=== PATIENT | female | born 1995 | race Caucasian/White ===

== ENCOUNTER 2022-06-28 04:01 | Emergency (ER) | payer MEDICAID ==
[~2022-06-28] VITALS: Ht 170.2 cm; Wt 95.3 kg
[2022-06-28 04:10] VITALS: BP 119/68
--- NOTE | 2022-06-28 04:10 | NUR ---
BIBS FROM HOME C/O BUG STUCK IN HER RIGHT EAR. PT A/OX4. TOLERATING R/A AT 100%. PT IN NO DISTRESS AT THIS TIME. AMB WITH STEADY GAIT. SAFETY MEASURES IN PLACE.
[2022-06-28] MEDS ORDERED: LIDOCAINE VISCOUS 2% UD 15 ML UDC ONE (04:18)
[2022-06-28] MEDS ORDERED: LIDOCAINE VISCOUS 2% UD 15 ML UDC MM ONE (04:30)
--- NOTE | 2022-06-28 04:44 | NUR ---
DR. MOSS, EMT AND RT AT PT'S BEDSIDE FOR R EAR ASSESSMENT
[2022-06-28] MEDS ORDERED: AMOX-430 PO (04:57)
[2022-06-28] MEDS ORDERED: AMOX/CLAVULANATE 875 MG TABLET ONE (04:59)
[2022-06-28] MEDS ORDERED: AMOX/CLAVULANATE 875 MG TABLET PO ONE (05:00)
== END 2022-06-28 05:26 | disposition home or self-care (01) ==
LOC: ER 04:05
DX: T16.1XXA Foreign body in right ear, initial encounter (principal); W45.8XXA Other foreign body or object entering through skin, initial encounter; Y93.89 Activity, other specified; Y92.89 Other specified places as the place of occurrence of the external cause; Y99.8 Other external cause status

== ENCOUNTER 2024-06-07 16:38 | Emergency (ER) | payer BC, MEDICAID ==
[~2024-06-07] VITALS: Ht 167.6 cm; Wt 88.5 kg
[~2024-06-07 16:38] MED LIST: AMOX-430 PO
[2024-06-07 17:33] VITALS: TEMP 97.9
[2024-06-07 18:12] LABS: BASOPHILS # (AUTO) 0.1 K/uL (0.0-0.2); BASOPHILS % (AUTO) 0.7 % (0.0-2.0); EOSINOPHILS # (AUTO) 0.2 K/uL (0.0-0.7); EOSINOPHILS % (AUTO) 1.4 % (0.0-6.0); HEMATOCRIT 36 % (33-45); HEMOGLOBIN 11.4 g/dL (11.5-14.8); LYMPHOCYTES # (AUTO) 3.1 K/uL (0.8-4.8); LYMPHOCYTES % (AUTO) 27.9 % (20.0-44.0); MEAN CORPUSCULAR HEMOGLOBIN 26 PG (26.0-33.0); MEAN CORPUSCULAR HGB CONC 32 g/dl (31.0-36.0); MEAN CORPUSCULAR VOLUME 80 fL (82-100); MONOCYTES # (AUTO) 0.9 K/uL (0.1-1.30); MONOCYTES % (AUTO) 8.4 % (2.0-12.0); NEUTROPHILS # (AUTO) 6.9 K/uL (1.8-8.9); NEUTROPHILS % (AUTO) 61.6 % (43.0-81.0); PLATELET COUNT (AUTO) 360 K/uL (150-450); RED BLOOD CELL COUNT(AUTO) 4.45 MIL/uL (4.0-5.2); RED CELL DISTRIBUTION WIDTH 16.5 % (11.5-15.0); WHITE BLOOD COUNT (AUTO) 11.2 K/uL (4.3-11.0)
[2024-06-07 18:24] LABS: CALCIUM, SERUM 8.8 mg/dL (8.5-10.1); CREATININE 0.6 mg/dL (0.6-1.3)
[2024-06-07 18:36] LABS: APPEARANCE,URINE Clear (CLEAR); BILIRUBIN,URINE Negative (NEGATIVE); BLOOD, URINE Large Ery/uL (NEGATIVE); COLOR,URINE YELLOW (YELLOW); KETONES,URINE 15 mg/dL (NEGATIVE); LEUKOCYTE ESTERASE ,URINE Negative (NEGATIVE); NITRITE, URINE Negative (NEGATIVE); PH,URINE 5.5 (5.0-8.0); PROTEIN,URINE Negative (NEGATIVE); UGLUCOSE Negative (NEGATIVE); UROBILINOGEN,URINE 0.2 EU/dL (0.2)
[2024-06-07 19:03] LABS: WBC,URINE 0-2 /HPF (0-3)
[2024-06-07 19:04] LABS: ADD URINE CULTURE NO; BACTERIA,URINE Few /HPF (None Seen); SQUAMOUS EPITHELIAL CELL,UR Few /HPF (None Seen)
[2024-06-07 21:43] VITALS: BP 128/78; O2SAT 100
== END 2024-06-07 21:44 | disposition home or self-care (01) ==
LOC: ER 16:49
DX: O46.91 Antepartum hemorrhage, unspecified, first trimester (principal); R10.2 Pelvic and perineal pain; Z79.899 Other long term (current) drug therapy; Z3A.01 Less than 8 weeks gestation of pregnancy
CPT/HCPCS: 36415; 76805-TC; 80048-TC; 81001; 84702-TC; 85025-TC